=== PATIENT | male | born 1960 | race American Indian/Alaskan Native ===

== ENCOUNTER 2017-08-05 08:29 | Emergency (ER) | payer BC ==
[2017-08-05] MEDS ORDERED: ZESTRIL ONE (08:39)
[2017-08-05] MEDS ORDERED: ZESTRIL PO ONE (08:40)
--- NOTE | 2017-08-05 09:00 | XRay Report ---
ROUTINE CHEST, TWO VIEWS: HISTORY: Cough. The trachea, heart, mediastinal contour, lung martell and bony thorax are unremarkable. IMPRESSION: Unremarkable chest x-ray.
[2017-08-05 09:01] LABS: Hematocrit 45.8 % (35.5-45.6); Hemoglobin 15.2 gm/dl (11.8-15.2); Mean Corpuscular HGB Conc 33 % (32-34); Mean Corpuscular Hemoglobin 27 pg (28-32); Mean Corpuscular Volume 82 fl (84-94); Platelet Count 200 K/mm3 (140-440); Red Blood Count 5.61 M/mm3 (3.65-5.03); Red Cell Distribution Width 15.5 % (13.2-15.2)
[2017-08-05 09:19] LABS: BUN/Creatinine Ratio 12; Blood Urea Nitrogen 11 mg/dL (9-20); Calcium 8.6 mg/dL (8.4-10.2); Hemolysis Index 20
--- NOTE | 2017-08-05 11:42 | Emergency Department Report ---
HPI - General Chief Complaint: High BP Time Seen by Provider: 08/05/17 11:31 - HPI HPI: Mr. Nguyen is a pleasant 57-year-old male with history of hypertension. He has not had his medication lisinopril in over 3 weeks. He's had nonproductive cough and nasal congestion for 2 days. He denies fever. Denies body aches. Denies chills. Denies visual disturbance. Denies chest pain. No shortness breath. Had mild nondescript headache which is now resolved. He states that his blood pressure has been poorly controlled over the last several years. He has recently changed to a new physician Dr. Jayden Paet. New patient appointment scheduled for 08/13/2017. ED Past Medical Hx - Past Medical History Previous Medical History?: Yes Hx Hypertension: Yes - Surgical History Hx Appendectomy: Yes Additional Surgical History: tonsils - Social History Smoking Status: Never Smoker Substance Use Type: None - Medications Home Medications: Home Medications Medication Instructions Recorded Confirmed Last Taken Type Lisinopril [Zestril TAB] 20 mg PO QDAY #30 tablet 03/14/15 04/16/15 04/16/15 08: 30 Rx Azithromycin [Zithromax] 250 mg PO DAILY #6 tablet 05/31/16 Unknown Rx Lisinopril [Zestril TAB] 20 mg PO QDAY #30 tablet 05/31/16 Unknown Rx Lisinopril 20 mg PO DAILY 14 Days #14 tablet 08/05/17 Unknown Rx amLODIPine [Norvasc] 5 mg PO DAILY 14 Days #14 tab 08/05/17 Unknown Rx ED Review of Systems ROS: Stated complaint: COUGHING Other details as noted in HPI Comment: All other systems reviewed and negative Constitutional: denies: fever, malaise, weakness ENT: denies: ear pain, throat pain Respiratory: denies: cough, orthopnea Cardiovascular: denies: chest pain Physical Exam - Physical Exam Vital Signs: Vital Signs 08/05/17 08/05/17 08:32 08:41 Temperature 98.2 F Pulse Rate 103 H 103 H Respiratory 18 Rate Blood Pressure 204/135 204/135 O2 Sat by Pulse 98 Oximetry Physical Exam: General: Well-appearing, no acute distress HEENT: Normocephalic atraumatic pupils equal round and reactive to light anicteric sclera Nose: no rhinorrhea Oropharynx: Clear mucous membranes no lesions Neck: supple, no meningismus Chest: Clear to auscultation bilaterally no rales rhonchi no wheezes Cardiac: Regular rate and rhythm no murmurs no rubs no gallops Abdomen: Soft nontender nondistended positive bowel sounds no guarding Extremities: No cyanosis no clubbing no edema Neuro: Moves all extremities 4, no gross deficits Psychiatric: Alert and oriented 4 normal aspect normal judgment normal insight ED Course Vital Signs 08/05/17 08/05/17 08:32 08:41 Temperature 98.2 F Pulse Rate 103 H 103 H Respiratory 18 Rate Blood Pressure 204/135 204/135 O2 Sat by Pulse 98 Oximetry ED Medical Decision Making - Lab Data Result diagrams: 08/05/17 08:48 08/05/17 08:48 - Medical Decision Making 57 yo male presents with URI symptoms and asymptomatic hypertension. Given supportive care instructions. rx: amlodipine and lisinopril Critical care attestation.: If time is entered above; I have spent that time in minutes in the direct care of this critically ill patient, excluding procedure time. ED Disposition Clinical Impression: Hypertensive urgency, Upper respiratory infection Disposition: DC-01 TO HOME OR SELFCARE Is pt being admited?: No Does the pt Need Aspirin: No Condition: Good Instructions: Hypertension (ED), Upper Respiratory Infection (ED) Prescriptions: amLODIPine [Norvasc] 5 mg PO DAILY 14 Days #14 tab Lisinopril 20 mg PO DAILY 14 Days #14 tablet Referrals: JAYDEN PATE MD [Primary Care Provider] - 3-5 Days Forms: Work/School Release Form(ED)
[2017-08-05 12:05] VITALS: BP 198/99
== END 2017-08-05 12:07 | disposition home or self-care (01) ==
LOC: ED 08:29
DX: I16.0 Hypertensive urgency (principal); J06.9 Acute upper respiratory infection, unspecified
CPT/HCPCS: 36415; 71046; 80048; 85027; 99284

== ENCOUNTER 2017-08-07 08:39 | Emergency (ER) | payer BC ==
--- NOTE | 2017-08-07 11:24 | Emergency Department Report ---
- General Chief Complaint: Medical Clearance Stated Complaint: COUGH Time Seen by Provider: 08/07/17 11:12 Source: patient Mode of arrival: Ambulatory Limitations: No Limitations - History of Present Illness MD Complaint: cough (productive) -: Gradual, days(s) (5) Severity: moderate Consistency: intermittent Improves With: nothing Worsens With: nothing Context: sick contacts (students) Associated Symptoms: fever, nasal congestion, cough, hoarseness. denies: chills , myalgias, diaphoresis, headache, rhinorrhea, chest pain, shortness of breath, abdominal pain, nausea, vomiting, diarrhea, rash, confusion, right sweats, weight loss, epistaxis Treatments Prior to Arrival: none - Related Data Previous Rx's Medication Instructions Recorded Last Taken Type Lisinopril [Zestril TAB] 20 mg PO QDAY #30 tablet 03/14/15 04/16/15 08:30 Rx Lisinopril [Zestril TAB] 20 mg PO QDAY #30 tablet 05/31/16 Unknown Rx Lisinopril 20 mg PO DAILY 14 Days #14 tablet 08/05/17 Unknown Rx amLODIPine [Norvasc] 5 mg PO DAILY 14 Days #14 tab 08/05/17 Unknown Rx Azithromycin [Zithromax Z-HENNA] 250 mg PO DAILY #6 tablet 08/07/17 Unknown Rx Benzonatate [Tessalon Perle] 200 mg PO TID PRN #30 capsule 08/07/17 Unknown Rx guaiFENesin/CODEINE [Robitussin AC] 10 ml PO TID PRN #150 udc 08/07/17 Unknown Rx Allergies Allergy/AdvReac Type Severity Reaction Status Date / Time No Known Allergies Allergy Verified 04/16/15 11:48 ED Review of Systems ROS: Stated complaint: COUGH Other details as noted in HPI Constitutional: no symptoms reported, see HPI Eyes: denies: eye pain, eye discharge, vision change ENT: denies: ear pain, throat pain Respiratory: cough. denies: shortness of breath, wheezing Cardiovascular: denies: chest pain, palpitations Endocrine: no symptoms reported Gastrointestinal: denies: abdominal pain, nausea, diarrhea Genitourinary: denies: urgency, dysuria Musculoskeletal: denies: back pain, joint swelling, arthralgia Skin: denies: rash, lesions Neurological: denies: headache, weakness, paresthesias Psychiatric: denies: anxiety, depression Hematological/Lymphatic: denies: easy bleeding, easy bruising ED Past Medical Hx - Past Medical History Previous Medical History?: Yes Hx Hypertension: Yes - Surgical History Past Surgical History?: Yes Hx Appendectomy: Yes Additional Surgical History: tonsils - Social History Smoking Status: Never Smoker - Medications Home Medications: Home Medications Medication Instructions Recorded Confirmed Last Taken Type Lisinopril [Zestril TAB] 20 mg PO QDAY #30 tablet 03/14/15 04/16/15 04/16/15 08: 30 Rx Lisinopril [Zestril TAB] 20 mg PO QDAY #30 tablet 05/31/16 Unknown Rx Lisinopril 20 mg PO DAILY 14 Days #14 tablet 08/05/17 Unknown Rx amLODIPine [Norvasc] 5 mg PO DAILY 14 Days #14 tab 08/05/17 Unknown Rx Azithromycin [Zithromax Z-HENNA] 250 mg PO DAILY #6 tablet 08/07/17 Unknown Rx Benzonatate [Tessalon Perle] 200 mg PO TID PRN #30 capsule 08/07/17 Unknown Rx guaiFENesin/CODEINE [Robitussin AC] 10 ml PO TID PRN #150 udc 08/07/17 Unknown Rx ED Physical Exam - General Limitations: No Limitations General appearance: alert, in no apparent distress - Head Head exam: Present: atraumatic, normocephalic - Eye Eye exam: Present: normal appearance, PERRL - ENT ENT exam: Present: normal exam, normal orophraynx, mucous membranes dry, TM's normal bilaterally - Neck Neck exam: Present: normal inspection - Respiratory Respiratory exam: Present: normal lung sounds bilaterally. Absent: respiratory distress, wheezes, rales, rhonchi - Cardiovascular Cardiovascular Exam: Present: regular rate, normal rhythm, normal heart sounds - GI/Abdominal GI/Abdominal exam: Present: soft, normal bowel sounds - Rectal Rectal exam: Present: deferred - Extremities Exam Extremities exam: Present: normal inspection, full ROM - Back Exam Back exam: Present: normal inspection, full ROM - Neurological Exam Neurological exam: Present: alert, oriented X3, CN II-XII intact - Psychiatric Psychiatric exam: Present: normal affect, normal mood - Skin Skin exam: Present: warm, dry, intact, normal color ED Course Vital Signs 08/07/17 09:19 Temperature 97.5 F L Pulse Rate 86 Respiratory 18 Rate Blood Pressure 159/113 O2 Sat by Pulse 96 Oximetry Critical care attestation.: If time is entered above; I have spent that time in minutes in the direct care of this critically ill patient, excluding procedure time. ED Disposition Clinical Impression: Bronchitis Upper respiratory infection Qualifiers: URI type: unspecified URI Qualified Code(s): J06.9 - Acute upper respiratory infection, unspecified Disposition: - TO HOME OR SELFCARE Is pt being admited?: No Does the pt Need Aspirin: No Condition: Stable Instructions: Chronic Bronchitis (ED) Additional Instructions: Follow up with PMD Prescriptions: Azithromycin [Zithromax Z-HENNA] 250 mg PO DAILY #6 tablet Benzonatate [Tessalon Perle] 200 mg PO TID PRN #30 capsule PRN Reason: Cough guaiFENesin/CODEINE [Robitussin AC] 10 ml PO TID PRN #150 udc PRN Reason: Cough Referrals: RONNIE PATE MD [Primary Care Provider] - 3-5 Days
[2017-08-07 11:39] VITALS: BP 162/118
== END 2017-08-07 11:40 | disposition home or self-care (01) ==
LOC: ED 08:39
DX: J40 Bronchitis, not specified as acute or chronic (principal); J06.9 Acute upper respiratory infection, unspecified; I10 Essential (primary) hypertension
CPT/HCPCS: 99282